=== PATIENT | female | born 1960 | race Caucasian/White ===

== ENCOUNTER 2024-11-03 09:12 | Outpatient (CLI) | payer MEDICARE, SELFPAY ==
--- OUTSIDE RECORDS SUMMARY | 2024-05-01 10:15 | XMS_ITS ---
Author Organization [facility] Address [address] [facility] [address] [place] [id number] Care Team Providers Care Factory Machine Computer Operator Name Role Phone Jamie Mata Primary Care [...] Normal Performing Lab: Notes/Report: Test performed by [facility] [place] [facility] [facility] , [address], [place] [address] Raj Harley MD, Dairy Frozen Manager CLIA: [id number] Sodium 140 135-145 mmol/L Potassium 4.5 3.5-5.3 [...] 4.3 Performing Lab: Notes/Report: Test performed by [facility], [address] , [address], [place] [address] Raj Harley MD, Dairy Frozen Manager CLIA: [id number] Cholesterol 329 <200 mg/dL Triglycerides 141 <150 [...] Normal Performing Lab: Notes/Report: Test performed by [facility] [address] [place] [address] , [address], [place] [address] Raj Harley MD, Dairy Frozen Manager CLIA: [id number] TSH reflex to FT4 0.55 0.43-5.25 mU/L P-Microalbumin/Creatinine, R andom Urine Sample Reviewed date:05/03/2024 09:05:11 PM Interpretation: Normal Performing Lab: Notes/Report: Test performed by [facility] [address] [place] [address] , [address], [place] [address] Raj Harley MD, Dairy Frozen Manager CLIA: [id number] Albumin/Creatinine Ratio, Urine <7.9 0-30 ug/m g Microalbumin, Urine, Random <0.3 Creatinine, Urine 37.9 REASON FOR VISIT to get established Medications [...] W/U Status Risk Notes Problem Essential hypertension (57582549) Essential hypertension (I10) Active confirmed Problem Pure hypercholesterolemia (250100551) Pure hypercholesterolemia (E78.00) Active confirmed Problem Morbid obesity (991006050) Morbid obesity (E66.01) Active confirmed Vital Signs Weight 258 lbs 05/01/2024 Blood pressure systolic 124 mm Hg 05/01/19 25 Blood pressure diastolic 82 mm Hg 025 Heart Rate 122 /min 05/01/2024 Height 67 in 05/01/2024 BMI 40.40 kg/m2 05/01/2024 Encounters Encounter Location Date Provider Diagnosis [facility] [address] [place], [place] [id number] 05/01/2024 Jamie Mata Essential hypertensi on I10 ; Pure hypercholesterolemia [...] improve Pending Test Test Name Order Date DEXA Hip and Spine 05/01/2024 Mammogram 05/01/2024 Next Appt Details Follow Up: 6 Months, Reason: Progress Notes * Agus SHAYB: 9 (64 yo F)Acc No.[id number]:05/01/2024 Progress Notes Patient: Karmen FRNAKLIN Provider: Bhavin Mata M.D. :1960 A ge:64 Y S ex:Female Date:05/01/2024 Address:[facility] [place] , [place], [id number] Subjective: * Chief Complaints: * 1 . To get established. * HPI: H PI: 64 year old female presents with c/o Patient is here today for?Pt here to establish care, pt was previously seen by Kourtney Brown NP in [place]. Pt moved to [place] in October 2023. 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 Assessment: * Assessment: 1. E ssential hypertension [...] glucose 134 74 - 106 mg/dL * Mary Sternira 05/01/2024 3:38:55 PM > Lashae Marie 05/03/2024 9:05:03 PM >See phone encounter ?LAB: Glycohemoglobin A1c (in house) (Collection Date & Time - 05/01/2024)? 5.7* Value Reference Range g lycohemoglobin 5.7% 5 - 6.5 % * Mary Sternira 05/01/2024 3:41:38 PM > Lashae Marie 05/03/2024 [...] 05/01/2024 4:05:4 1 PM > faxed to [facility] Scheduling 7.?Osteoporosis screening?Imaging: DEXA Hip and Spine* Jeimy Gomez 05/01/2024 4:05:5 4 PM > faxed to [facility] Scheduling * Immunizations: Prevnar (PCV20) : 0.5 mL (Route: Intramuscular) given by Deb Stern on Left Deltoid (Encounter for immunization) * Procedure Codes: 8 2950 GLUCOSE TEST, 80098 GLYCATED HEMOGLOBIN TEST, Modifiers: QW * Follow Up: 6 Months * Images: Billing Information: * Visit Code: 46605 Office Visit, New Pt., Level 4. * Procedure Codes: 23608 GLUCOSE TEST. 70593 GLYCATED HEMOGLOBIN TEST. Modifiers: QW * Electronic signature of Daily Mata MD on 11/03/2024 at 09:16 AM EDT Sign off status: Pending * Provider: Bhavin Mata M.D. Date: 0 05/01/2024 Generated for Derrell patino/Clay/Mayosmitting on: 0 11/03/2024 09:16 AM EDT History and Physical Notes * [...] previously seen by Kourtney Brown NP in [place]. 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
--- OUTSIDE RECORDS SUMMARY | 2024-10-28 05:00 | XMS_ITS ---
Author Organization [facility] Address [address] [facility] [address] [place] [id number] Care Team Providers Care Assistant Chief Train Dispatcher Name Role Phone Jamie Mata Primary Care Provider Allergies Allergen (clinical drug ingredient) Drug/Non Drug Allergy documented on EMR Reaction Allergy Type Onset Date Status prochlorperazine Prochlorperazine Unknown Drug Allergy Active Results Component Value Reference Range Notes Glucose (In-House) (Not yet reviewed by provider) Interpretation:93 Normal Performing Lab: Notes/Report: 93 Normal blood glucose 93 74 - 106 mg/dL Glycohemoglobin A1c (in hous e) (Not yet reviewed by provider) Interpretation:5.8 Normal Performing Lab: Notes/Report: 5.8 Normal glycohemoglobin 5.8% 5 - 6.5 % P-Comprehensive Metabolic Pa jessica (CMP) (Not yet reviewed by provider) Interpretation:Normal Performing Lab: Notes/Report: Test performed by [facility] [facility] , [address], [place] [address] Raj Harley MD, Tire Manager CLIA: [id number] Sodium 141 135-145 mmol/L Potassium 4.4 3.5-5.3 [...] mg/dL A/G Ratio 2.1 1.1-2.5 P-Lipid Panel (Not yet revie wed by provider) Interpretation:Normal Performing Lab: Notes/Report: Test performed by [facility] [address] , [address], [place] [address] Raj Harley MD, Tire Manager CLIA: [id number] Cholesterol 146 <200 mg/dL Triglycerides 83 <150 [...] fasting glucose) (R73.01) Active confirmed Vital Signs Weight 244.8 lbs 10/28/2024 Blood pressure systolic 120 mm Hg 10/29/19 25 Blood pressure diastolic 82 mm Hg 025 Heart Rate 96 /min 10/28/2024 Height 67 in 10/28/2024 BMI 38.34 kg/m2 10/28/2024 Encounters Encounter Location Date Provider Diagnosis [facility] [address] [place], [place] [id number] 10/28/2024 Jamie [place] Pure hypercholestero lemia E78.00 ; Essential hypertension [...] (ICD- 10 - E66.01) Plan Of Treatment Pending Test Test Name Order Date Glucose (In-House) 10/28/2024 Glycohemoglobin A1c (in house) P-Comprehensive Metabolic Panel (CMP) P-Lipid Panel 10/28/2024 Next Appt Details Follow Up: 6 Months, Reason: Progress Notes * Kim SHAYaDOB: [birth year] (64 yo F)Acc No.[id number]:10/28/2024 Progress Notes Patient: Karmen FRANKLIN Provider: Bhavin Mata M.D. :1960 A ge:64 Y S ex:Female Date:10/28/2024 Address:[facility] [address] , [place], [id number] Subjective: * Chief Complaints: * 1 . [...] > LM for pt to return call ?LAB: P-Lipid Panel (Collection Date & Time [...] T riglycerides 83 <150 - mg/dL * Deb Stern 10/29/2024 03:09:1 5 PM EDT > LM for pt to return call Deb Stern 11/02/2024 02:50:48 PM EDT > LM for pt to return call 2.?Essential hypertension?LAB: P-Comprehensive Metabolic Panel (CMP) (Collection [...] by Creatinine 94 >59 - mL/min/1.73m2 * [facility] 10/29/2024 03:09:1 5 PM EDT > LM for pt to return call [facility] 11/02/2024 02:50:48 PM EDT > LM for pt to return call 3.?IFG (impaired fasting glucose)?LAB: P-Comprehensive Metabolic Panel [...] by Creatinine 94 >59 - mL/min/1.73m2 * Jarred [facility] 10/29/2024 03:09:1 5 PM EDT > LM for pt to return call [facility] 11/02/2024 02:50:48 PM EDT > LM for pt to return call ?LAB: Glucose (In-House) (Collection Date & Time - 10/28/2024)?93 Normal* Value Reference Range b lood glucose 93 74 - 106 mg/dL * Deb Stern 10/28/2024 12:20:4 9 PM EDT > Deb Stern 10/29/2024 03:09:15 PM EDT > LM for pt to return call Deb Stern 11/02/2024 02:50:48 PM EDT > LM for pt to return call ?LAB: Glycohemoglobin A1c (in house) (Collection Date & Time - 10/28/2024)? 5.8 Normal* Value Reference Range g lycohemoglobin 5.8% 5 - 6.5 % * Deb Stern 10/28/2024 12:23:0 9 PM EDT > Deb Stern 10/29/2024 03:09:15 PM EDT > LM for pt to return call Deb Stern 11/02/2024 02:50:48 PM EDT > LM for pt to return call * Procedure Codes: G 2211 Complex e/[place], [address] GLUCOSE TEST, 82535 GLYCATED HEMOGLOBIN TEST, Modifiers: QW , 3044F HG A1C LEVEL LT 7.0%, 1036F TOBACCO NON-USER, G8950 PREHTN/HTN BP DOC INDCD F/U DOC, G8752 MOST RECENT SYSTOLIC BP < 140MM HG, G8754 MOST RECENT DIASTOLIC BP < 90MM HG * Follow Up: 6 Months * Images: Billing Information: * Visit Code: 75342 Office Visit, Est Pt., Level 4. * Procedure Codes: G2211 Complex e/[place]. [address] GLUCOSE TEST. 18482 GLYCATED HEMOGLOBIN TEST. Modifiers: QW 3044F HG A1C LEVEL LT 7.0%. 1036F TOBACCO NON-USER. G8950 PREHTN/HTN BP DOC INDCD F/U DOC. G8752 MOST RECENT SYSTOLIC BP < 140MM HG. G8754 MOST RECENT DIASTOLIC BP < 90MM HG. * Electronic signature of Daily Mata MD on 11/03/2024 at 09:16 AM EDT Sign off status: Pending * Provider: Bhavin Mata M.D. Date: 0 10/28/2024 Generated for Derrell patino/Clay/Krystin on: 11/03/2024 09:16 AM EDT History and Physical [...]
--- OUTSIDE RECORDS SUMMARY | 2024-11-03 09:16 | XMS_ITS | Patient Health Record ---
[facility] Organization [facility] Address [address] [facility] [address] [facility] [address] [place] [id number] Care Team Providers Care Java Xml Developer Name Role Phone Jamie Mata Primary Care Provider Allergies Allergen (clinical drug ingredient) Drug/Non Drug Allergy documented on EMR Reaction Allergy Type Onset Date Status prochlorperazine Prochlorperazine Unknown Drug Allergy Active Results Component Value Reference Range Notes Glycohemoglobin A1c (in hous e) (Not yet reviewed by provider) Interpretation:5.8 Normal Performing Lab: Notes/Report: 5.8 Normal glycohemoglobin 5.8% 5 - 6.5 % P-Lipid Panel (Not yet revie wed by provider) Interpretation:Normal Performing Lab: Notes/Report: Test performed by [facility] [address] [place] [address] , [address], [place] [address] aRj Harley MD, Fiscal Technician CLIA: [id number] Cholesterol 146 <200 mg/dL Triglycerides 83 <150 [...] Results: 72 Units: mg/dL % Change: -70% ANTONY Reviewed date:04/28/2024 01:14:43 PM Interpretation: Performing Lab: Notes/Report: P-Comprehensive Metabolic Pa jessica (CMP) (Not yet reviewed by provider) Interpretation:Normal Performing Lab: Notes/Report: Test performed by [facility] [facility] , [address], [place] [address] Raj Harley MD, Fiscal Technician CLIA: [id number] Sodium 141 135-145 mmol/L Potassium 4.4 3.5-5.3 [...] 0.3 <0.2-1.2 mg/dL A/G Ratio 2.1 1.1-2.5 Glucose (In-House) (Not yet reviewed by provider) Interpretation:93 Normal Performing Lab: Notes/Report: 93 Normal blood glucose 93 74 - 106 mg/dL P-Microalbumin/Creatinine, R andom Urine Sample Reviewed date:05/03/2024 09:05:11 PM Interpretation: Normal Performing Lab: Notes/Report: Test performed by [facility] [address] [place] [address] , [place] [address] Raj Harley MD, Fiscal Technician CLIA: [id number] Albumin/Creatinine Ratio, Urine <7.9 0-30 ug/m g Microalbumin, Urine, Random <0.3 Creatinine, Urine 37.9 P-TSH reflex to FT4 Reviewed date:05/03/2024 09:05:11 PM Interpretation: Normal Performing Lab: Notes/Report: Test performed by [facility] [address] [place] [address] , [place] [address] Raj Harley MD, Fiscal Technician CLIA: [id number] TSH reflex to FT4 0.55 0.43-5.25 mU/L P-Lipid Panel Reviewed date:05/03/2024 09:05:11 PM Interpretation:chol 329, chol/hdl 5.77, non-hdl 272, ldl 244, ldl/hdl 4.3 Performing Lab: Notes/Report: Test performed by [facility] [address] [place] [address] , [address], [place] [address] Raj Harley MD, Fiscal Technician CLIA: [id number] Cholesterol 329 <200 mg/dL Triglycerides 141 <150 [...] Results: 244 Units: mg/dL % Change: - P-Comprehensive Metabolic Pa jessica (CMP) Reviewed date:05/03/2024 09:05:11 PM Interpretation: Normal Performing Lab: Notes/Report: Test performed by [facility] [address] [place] [address] , [address], [place] [address] Raj Harley MD, Fiscal Technician CLIA: [id number] Sodium 140 135-145 mmol/L Potassium 4.5 3.5-5.3 [...] 0.3 <0.2-1.2 mg/dL A/G Ratio 1.7 1.1-2.5 Glycohemoglobin A1c (in hous e) Reviewed date:05/03/2024 09:05:11 PM Interpretation:5.7 Performing Lab: Notes/Report: 5.7 glycohemoglobin 5.7% 5 - 6.5 % Glucose (In-House) Reviewed date:05/03/2024 09:05:11 PM Interpretation:134 Performing Lab: Notes/Report: 134 blood glucose 134 74 - 106 mg/dL Reason For Referral No Information Medications Medication SIG (Take, Route, Frequency, Duration) Notes Start Date End Date Status Spironolactone 25 MG 1 tablet Orally Onc e a day; Duration: 90 days Active amLODIPine Besylate 10 MG 1 tablet Orall y Once a day; Duration: 90 days Active Rosuvastatin Calcium 20 MG 1 tablet Oral ly Once a day; Duration: 90 days Active Enalapril Maleate 20 MG 1 tablet Orally Once a day; Duration: 90 days Active Multivitamin - 1 tablet Orally Once a day; Duration: 30 day(s) Active Probiotic - as directed Orally Active Venlafaxine HCl 75 MG 1 tablet [...] W/U Status Risk Notes Problem Essential hypertension (31781334) Essential hypertension (I10) Active confirmed Problem Morbid obesity (960102065) Morbid obesity (E66.01) Active confirmed Problem Impaired fasting glycaemia (482590579) IFG (impaired fasting glucose) (R73.01) Active confirmed Problem Pure hypercholesterolemia (E78.00) Active confirmed Vital Signs Heart Rate 96 /min 10/28/2024 Blood pressure diastolic 82 mm Hg 10/28/2024 Height 67 in 10/28/2024 Blood pressure systolic 120 mm Hg 10/28/2024 Weight 244.8 lbs 10/28/2024 BMI 38.34 kg/m2 10/28/2024 Encounters Encounter Location Date Provider Diagnosis [facility] [address] [facility] [address] [place] [id number] 05/01/2024 Jamie Mata Essential hypertensi on I10 ; Pure hypercholesterolemia E78.00 ; IFG (impaired fasting glucose) R73.01 ; Depressive disorder F32.A ; Morbid obesity E66.01 ; Left wrist pain M25.532 ; Breast cancer screening by mammogram Z12.31 ; Osteoporosis screening Z13.820 and [facility]counter [facility] Z[facility] [address] [place] [phone] 10/28/2024 Jamieessence Mata Pure hypercholestero lemia E78.00 ; Essential hypertension I10 ; IFG (impaired fasting glucose) R73.01 ; Depressive disorder F32.A and Morbid obesity E66.01 [facility] [address] [place] [phone] 05/03/2024 Jamie Mata Assessments Encounter Date Diagnosis (ICD Code) Assessment Notes Treatment Notes Treatment Clinical Notes Section Notes 05/01/2024 Essential hypertensi on (ICD-10 - I10) 05/01/2024 Pure hypercholesterolemia (ICD-10 - E78.00) 10/28/2024 Essential hypertensi on (ICD-10 - I10) 10/28/2024 Pure hypercholesterolemia (ICD-10 - E78.00) 10/28/2024 IFG (impaired fastin g glucose) (ICD-10 - R73.01) 05/01/2024 IFG (impaired fastin g glucose) (ICD-10 - R73.01) 05/01/2024 Depressive disorder (ICD-10 - F32.A) 10/28/2024 Depressive disorder (ICD-10 - F32.A) 10/28/2024 Morbid obesity (ICD- 10 - E66.01) 05/01/2024 Morbid obesity (ICD- 10 - E66.01) 05/01/2024 Left wrist pain (ICD -10 - M25.532) Plan a trial of wearing a wrist cock up splint, call if symptoms do not improve 05/01/2024 Breast cancer screen ing by mammogram (ICD-10 - Z12.31) 05/01/2024 Osteoporosis screeni ng (ICD-10 - Z13.820) 05/01/2024 Encounter for immunization (ICD-10 - Z23) Plan Of Treatment Pending Test Test Name Order Date DEXA Hip and Spine 05/01/2024 Glucose (In-House) 10/28/2024 Glycohemoglobin A1c (in house) Mammogram 05/01/2024 P-Comprehensive Metabolic Panel (CMP) P-Lipid Panel 10/28/2024 Insurance Providers Payer Name Payer Address Payer Phone Subscriber Number Group Number Insured Name Patient Relationship to Insured Coverage Start Date Coverage End Date MEDICARE PART B [address] [address] [place] [id number] Karmen Blakely Self - patient is the insured Medical (General) History Medical History History ICD Code Hypertension Hyperlipidemia Allergic Rhinitis Depression Impaired fasting glucose Cologuard - Negative Surgical History Surgery Date(Month/Year) 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
--- OUTSIDE RECORDS SUMMARY | 2024-11-03 09:16 | XMS_ITS ---
Author Organization Unknown Medications Date Medication Dosage DosageUnit StartDate StopDate StopReason Active DoseQuantity DoseUnit Dispense DispenseUnit Refills NdcCode DrugCode PharmacyId IsPrescription MappedMedication Srcstatus 05/01 00:00 :00 amLODIPine Besylate 10 MG Tablet 1 90 1 0048 0716 810 P Unknown Status 05/01 00:00 :00 amLODIPine Besylate 10 MG Tablet 1 30 0048 0716 810 Taking 05/01 00:00 :00 Enalapril Maleate 20 MG Tablet 1 90 1 12489 044 501 P Unknown Status 05/01 00:00 :00 Enalapril Maleate 20 MG Tablet 1 30 66293 044 501 Taking 05/01 00:00 :00 metFORMIN HCl ER 500 MG Tablet Extended Release 24 Hour 1 90 1 [id number] 501 P Unknown Status 05/01 00:00 :00 metFORMIN HCl ER 500 MG Tablet Extended Release 24 Hour 1 30 [id number] 501 Taking 05/01 00:00 :00 Multivitami n - Tablet 1 30 4493412 6 411 Taking 05/01 00:00 :00 Probiotic - Tablet Delayed Release 1 [id number] 520 Taking 05/01 00:00 :00 Rosuvastati n Calcium 20 MG Tablet 1 90 1 136 15784 105 P Unknown Status 05/01 00:00 :00 Rosuvastati n Calcium 20 MG Tablet 1 30 136 86957 105 Taking 05/01 00:00 :00 Spironolact one 25 MG Tablet 1 90 Tablet 1 003 74114 601 P Unknown Status 05/01 00:00 :00 Spironolact one 25 MG Tablet 1 15 2022941 4 601 Taking 05/01 00:00 :00 Venlafaxine HCl 75 MG Tablet 1 90 1 2798265 5 701 P Unknown Status 05/01 00:00 :00 Venlafaxine HCl 75 MG Tablet 1 30 [id number] 5 701 Taking
--- NOTE | 2024-11-03 09:18 | XR_ITS ---
FINAL REPORT CLINICAL HISTORY: SCREENING COMPARISON: None FINDINGS: Using L1-4, the bone mineral density of the spine is 1.351 g/cm2, corresponding to T-score of 2.8, within normal limits. Using the left hip, the bone mineral density of the femoral neck is 0.913 g/cm2, corresponding to a T-score of 0.6, within normal limits. Using the right hip, the bone mineral density of the femoral neck is 0.839 g/cm2, corresponding to a T-score of -0.1, within normal limits. FRAX not reported because all T-scores at or above-1.0. NOTE: T-score: Standard deviation compared with peak bone mass of young adult mean. *Following the recommendations of the International Society of Bone densitometry, classification of hip BMD is based on the lower of two T-scores; total hip or femoral neck. IMPRESSION: Normal bone mineral density of the lumbar spine and hips. Reviewed, Interpreted and Dictated by Joshua Arreguin MD Transcribed by Nathalie Barnett Authenticated and [facility]
== END 2024-11-03 23:59 | disposition home or self-care (01) ==
LOC: RAD 09:14
PROVIDERS: PCP Family Medicine; Visit Provider Family Medicine
DX: M81.0 Age-related osteoporosis without current pathological fracture (principal)
CPT/HCPCS: 77080

== ENCOUNTER 2024-11-12 09:48 | Outpatient (CLI) | payer MEDICARE, SELFPAY ==
--- OUTSIDE RECORDS SUMMARY | 2024-05-01 10:15 | XMS_ITS ---
Author Organization [facility] Address [address] [facility] [address] [place] [id number] Care Team Providers Care Port Traffic Manager Name Role Phone Jamie Mata Primary Care Provider Allergies Allergen (clinical drug ingredient) Drug/Non Drug Allergy documented on EMR Reaction Allergy Type Onset Date Status prochlorperazine Prochlorperazine Unknown Drug Allergy Active Results Component Value Reference Range Notes Glucose (In-House) Reviewed date:05/03/2024 09:05:11 PM Interpretation:134 Performing Lab: Notes/Report: 134 blood glucose 134 74 - 106 mg/dL Glycohemoglobin A1c (in hous e) Reviewed date:05/03/2024 09:05:11 PM Interpretation:5.7 Performing Lab: Notes/Report: 5.7 glycohemoglobin 5.7% 5 - 6.5 % P-Comprehensive Metabolic Pa jessica (CMP) Reviewed date:05/03/2024 09:05:11 PM Interpretation: Normal Performing Lab: Notes/Report: Test performed by [facility] , [address], [place] [address] Raj Harley MD, Belt Conveyor Drier CLIA: [id number] Sodium 140 135-145 mmol/L Potassium 4.5 3.5-5.3 mmol/L Chloride 104 97-108 mmol/L CO2 25 22-32 mmol/L Glucose 96 65-99 mg/dL BUN 14 8-23 mg/dL Creatinine 0.89 0.50-1.00 mg/dL Calcium 10.4 8.6-10.4 mg/dL eGFR by Creatinine 72 >59 mL/min/1.73m2 Protein 7.2 6.0-8.3 g/dL Albumin 4.5 3.5-5.3 g/dL Alkaline Phosphatase 95 35-121 IU/L ALT (SGPT) 19 <5-47 IU/L AST (SGOT) 17 <5-40 IU/L Bilirubin, Total 0.3 <0.2-1.2 mg/dL A/G Ratio 1.7 1.1-2.5 P-Lipid Panel Reviewed date:05/03/2024 09:05:11 PM Interpretation:chol 329, chol/hdl 5.77, non-hdl 272, ldl 244, ldl/hdl 4.3 Performing Lab: Notes/Report: Test performed by [facility], [address] , [address], [place] [address] Raj Harley MD, Belt Conveyor Drier CLIA: [id number] Cholesterol 329 <200 mg/dL Triglycerides 141 <150 mg/dL HDL Cholesterol 57 >39 mg/dL Cholesterol / HDL Ratio 5.77 0.00-4.44 Ratio Non-HDL Cholesterol 272 <130 mg/dL LDL Cholesterol (Calculation) 244 <130 mg/dL LDL Cholesterol Levels* Less than 100 mg/dL Optimal 100 to 129 mg/dL Near Optimal/ Above Optimal 130 to 159 mg/dL Borderline High 160 to 189 mg/dL High 190 mg/dL and above Very High * Categories as recommended by the 2004 ATPIII guidelines LDL/HDL Ratio 4.3 <3.3 Ratio LDL Cholesterol Patient History Test Date: 05/01/2024 LDL Results: 244 Units: mg/dL % Change: - P-TSH reflex to FT4 Reviewed date:05/03/2024 09:05:11 PM Interpretation: Normal Performing Lab: Notes/Report: Test performed by [facility] [address] [place] [address] , [address], [place] [address] Raj Harley MD, Belt Conveyor Drier CLIA: [id number] TSH reflex to FT4 0.55 0.43-5.25 mU/L P-Microalbumin/Creatinine, R andom Urine Sample Reviewed date:05/03/2024 09:05:11 PM Interpretation: Normal Performing Lab: Notes/Report: Test performed by [facility] [address] [place] [address] , [address], [place] [address] Raj Harley MD, Belt Conveyor Drier CLIA: [id number] Albumin/Creatinine Ratio, Urine <7.9 0-30 ug/m g Microalbumin, Urine, Random <0.3 Creatinine, Urine 37.9 DEXA Hip and Spine Reviewed date:11/04/2024 04:51:55 PM Interpretation:Normal Performing Lab: Notes/Report: Normal Dexa results normal REASON FOR VISIT to get established Medications Medication SIG (Take, Route, Frequency, Duration) Notes Start Date End Date Status Spironolactone 25 MG 1 tablet Orally Onc e a day; Duration: 90 days Active Enalapril Maleate 20 MG 1 tablet Orally Once a day; Duration: 90 days Active Multivitamin - 1 tablet Orally Once a day; Duration: 30 day(s) Active amLODIPine Besylate 10 MG 1 tablet Orall y Once a day; Duration: 90 days Active metFORMIN HCl ER 500 MG 1 tablet with ev ening meal Orally Once a day; Duration: 90 days Active Probiotic - as directed Orally Active Rosuvastatin Calcium 20 MG 1 tablet Oral ly Once a day; Duration: 90 days Active Venlafaxine HCl 75 MG 1 tablet with food Orally Once a day; Duration: 90 days Active Immunizations Vaccine Route Administration Date Status Comme nts Prevnar (PCV20) IM Intramuscular 05/01/2024 Administered Problems Problem Type SNOMED Code ICD Code Onset Dates Problem Status W/U Status Risk Notes Problem Essential hypertension (04944057) Essential hypertension (I10) Active confirmed Problem Pure hypercholesterolemia (797204942) Pure hypercholesterolemia (E78.00) Active confirmed Problem Morbid obesity (059694376) Morbid obesity (E66.01) Active confirmed Vital Signs Blood pressure systolic 124 mm Hg 05/01/19 25 Blood pressure diastolic 82 mm Hg 025 Heart Rate 122 /min 05/01/2024 Height 67 in 05/01/2024 Weight 258 lbs 05/01/2024 BMI 40.40 kg/m2 05/01/2024 Encounters Encounter Location Date Provider Diagnosis [facility] [address] [facility] [address] [place], [place] [id number] 05/01/2024 Jamie Esperanza Essential hypertensi on I10 ; Pure hypercholesterolemia E78.00 ; IFG (impaired fasting glucose) R73.01 ; Depressive disorder F32.A ; Morbid obesity E66.01 ; Left wrist pain M25.532 ; Breast cancer screening by mammogram Z12.31 ; Osteoporosis screening Z13.820 and Encounter for immunization Z23 Assessments Encounter Date Diagnosis (ICD Code) Assessment Notes Treatment Notes Treatment Clinical Notes Section Notes 05/01/2024 Essential hypertensi on (ICD-10 - I10) 05/01/2024 Pure hypercholesterolemia (ICD-10 - E78.00) 05/01/2024 IFG (impaired fastin g glucose) (ICD-10 - R73.01) 05/01/2024 Depressive disorder (ICD-10 - F32.A) 05/01/2024 Morbid obesity (ICD- 10 - E66.01) 05/01/2024 Left wrist pain (ICD -10 - M25.532) Plan a trial of wearing a wrist cock up splint, call if symptoms do not improve 05/01/2024 Breast cancer screen ing by mammogram (ICD-10 - Z12.31) 05/01/2024 Osteoporosis screeni ng (ICD-10 - Z13.820) 05/01/2024 Encounter for immunization (ICD-10 - Z23) Plan Of Treatment Medication Medication Name Sig Start Date Stop Date Notes Spironolactone 25 MG 1 tablet Orally Onc e a day; Duration: 90 days Enalapril Maleate 20 MG 1 tablet Orally Once a day; Duration: 90 days amLODIPine Besylate 10 MG 1 tablet Orall y Once a day; Duration: 90 days metFORMIN HCl ER 500 MG 1 tablet with ev ening meal Orally Once a day; Duration: 90 days Rosuvastatin Calcium 20 MG 1 tablet Oral ly Once a day; Duration: 90 days Venlafaxine HCl 75 MG 1 tablet with food Orally Once a day; Duration: 90 days Treatment Notes Assessment Notes Left wrist pain Plan a trial of wear ing a wrist cock up splint, call if symptoms do not improve Pending Test Test Name Order Date Mammogram 05/01/2024 Next Appt Details Follow Up: 6 Months, Reason: Progress Notes * Agus SHAYB: 9 (64 yo F)Acc No.[id number]:05/01/2024 Progress Notes Patient: Karmen FRANKLIN Provider: Bhavin Mata M.D. :1960 A ge:64 Y S ex:Female Date:05/01/2024 Address:[address] [place] [address], [id number] Subjective: * Chief Complaints: * 1 . To get established. * HPI: H PI: 64 year old female presents with c/o Patient is here today for?Pt here to establish care, pt was previously seen by Kourtney Brown NP in [place]. Pt moved to [place] in October 2023. C ardiology: c/o Blood Pressure Elevated P t states she is doing well and does need rf on medication. E lbow/Arm: c/o radiation of pain P t complains of lt elbow pain that radiates to her wrist. Pt states the pain does improve if she is not using her lt arm but once she starts doing stuff the pain returns. * ROS: D ERMATOLOGY: no R marco. n o H jorge. G ASTROENTEROLOGY: no N ausea. n o V omiting. U ROLOGY: no D ifficulty urinating. n o B lood in urine. * Medical History: H ypertension, Hyperlipidemia, Allergic Rhinitis, Depression, Impaired fasting glucose. * Surgical History: P arathyroid Removal 01/2023, Carpal Tunnel Release 07/2023. * Hospitalization/Major Diagno stic Procedure: D enies Past Hospitalization. * Family History: F ather: diagnosed with Hypertension, Heart Disease, Stroke, Cancer. M other: diagnosed with Cancer. 1 sister(s) . 3 son(s) , 1 daughter(s) . . * Social History: C URRENT TOBACCO USE: No . C affeine: yes, frequency: Coffee, Tea daily. Alcohol: yes, Beer, 1 per week. * Medications: T aking Multivitamin - Tablet 1 tablet Orally Once a day , Taking Probiotic - Tablet Delayed Release as directed Orally , Taking Rosuvastatin Calcium 20 MG Tablet 1 tablet Orally Once a day , Taking Venlafaxine HCl 75 MG Tablet 1 tablet with food Orally Once a day , Taking Spironolactone 25 MG Tablet 1 tablet Orally , Taking Enalapril Maleate 20 MG Tablet 1 tablet Orally Once a day , Taking metFORMIN HCl ER 500 MG Tablet Extended Release 24 Hour 1 tablet with evening meal Orally Once a day , Taking amLODIPine Besylate 10 MG Tablet 1 tablet Orally Once a day , Medication List reviewed and reconciled with the patient * Allergies: P rochlorperazine. Objective: * Vitals: W t:258, Temp:98.1, BP:124/82, HR:122, Nurse:evan, Ht:67, BMI:40.40. * Examination: G eneral Examination: General Appearance: N AD. H EENT: u nremarkable.?Neck: s upple, no lymphadenopathy. H eart: R SR. L ungs: c lear to auscultation. S kin: n ormal, no rash. P eripheral pulses: n ormal (2+) bilaterally. E xtremities: f ull ROM at left wrist, no bony tenderness, normal physician specialist. Assessment: * Assessment: 1. E ssential hypertension - I10 (Primary) 2 . P ure hypercholesterolemia - E78.00 3 . I FG (impaired fasting glucose) - R73.01 4 . D epressive disorder - F32.A 5 . M orbid obesity - E66.01 6 . L eft wrist pain - M25.532 7 . B reast cancer screening by mammogram - Z12.31? 8. O steoporosis screening - Z13.820 9 . E ncounter for immunization - Z23 Plan: * Treatment: Value Reference Range A /G Ratio 1.7 1.1-2.5 - * A lbumin 4.5 3.5-5.3 - g/dL * A lkaline Phosphatase 95 35-121 - IU/L * A LT (SGPT) 19 <5-47 - IU/L * A ST (SGOT) 17 <5-40 - IU/L * B ilirubin, Total 0.3 <0.2-1.2 - mg/dL * B UN 14 8-23 - mg/dL * C alcium 10.4 8.6-10.4 - mg/dL * C hloride 104 97-108 - mmol/L * C O2 25 22-32 - mmol/L * C reatinine 0.89 0.50-1.00 - mg/dL * G lucose 96 65-99 - mg/dL * P otassium 4.5 3.5-5.3 - mmol/L * S odium 140 135-145 - mmol/L * P rotein 7.2 6.0-8.3 - g/dL * e GFR by Creatinine 72 >59 - mL/min/1.73m2 * Lashae Marie 05/03/2024 9:05:0 3 PM >See phone encounter ?LAB: P-Microalbumin/Creatinine, Random Urine Sample (Collection Date & Time - 05/01/2024 02:17 PM)?Normal* Value Reference Range A lbumin/Creatinine Ratio, Urine <7.9 0-30 - ug /mg * C reatinine, Urine 37.9 - mg/dL * M icroalbumin, Urine, Random <0.3 - mg/dL * Lashae Marie 05/03/2024 9:05:0 3 PM >See phone encounter 2.?Pure hypercholesterolemia? Refill Rosuvastatin Calcium Tablet, 20 MG, 1 tablet, Orally, Once a day, 90 days, 90, Refills 1. ?LAB: P-Comprehensive Metabolic Panel (CMP) (Collection Date & Time - 05/01/2024 02:17 PM)?Normal* Value Reference Range A /G Ratio 1.7 1.1-2.5 - * A lbumin 4.5 3.5-5.3 - g/dL * A lkaline Phosphatase 95 35-121 - IU/L * A LT (SGPT) 19 <5-47 - IU/L * A ST (SGOT) 17 <5-40 - IU/L * B ilirubin, Total 0.3 <0.2-1.2 - mg/dL * B UN 14 8-23 - mg/dL * C alcium 10.4 8.6-10.4 - mg/dL * C hloride 104 97-108 - mmol/L * C O2 25 22-32 - mmol/L * C reatinine 0.89 0.50-1.00 - mg/dL * G lucose 96 65-99 - mg/dL * P otassium 4.5 3.5-5.3 - mmol/L * S odium 140 135-145 - mmol/L * P rotein 7.2 6.0-8.3 - g/dL * e GFR by Creatinine 72 >59 - mL/min/1.73m2 * Lashae Marie 05/03/2024 9:05:0 3 PM >See phone encounter ?LAB: P-Lipid Panel (Collection Date & Time - 05/01/2024 02:17 PM)?chol 329, chol/hdl 5.77, non-hdl 272, ldl 244, ldl/hdl 4.3* Value Reference Range C holesterol / HDL Ratio 5.77 H 0.00-4.44 - Ratio * C holesterol 329 H <200 - mg/dL * H DL Cholesterol 57 >39 - mg/dL * L DL Cholesterol (Calculation) 244 H <130 - mg/d L * L DL/HDL Ratio 4.3 H <3.3 - Ratio * N on-HDL Cholesterol 272 H <130 - mg/dL * T riglycerides 141 <150 - mg/dL * Lashae Marie 05/03/2024 9:05:0 3 PM >See phone encounter ?LAB: P-TSH reflex to FT4 (Collection Date & Time - 05/01/2024 02:17 PM)? Normal* Value Reference Range T SH reflex to FT4 0.55 0.43-5.25 - mU/L * Lashae Marie 05/03/2024 9:05:0 3 PM >See phone encounter 3.?IFG (impaired fasting glucose)? Refill metFORMIN HCl ER Tablet Extended Release 24 Hour, 500 MG, 1 tablet with evening meal, Orally, Once a day, 90 days, 90, Refills 1.?LAB: Glucose (In-House) (Collection Date & Time - 05/01/2024)?134* Value Reference Range b lood glucose 134 74 - 106 mg/dL * Deb Stern 05/01/2024 3:38:55 PM > Lashae Marie 05/03/2024 9:05:03 PM >See phone encounter ?LAB: Glycohemoglobin A1c (in house) (Collection Date & Time - 05/01/2024)? 5.7* Value Reference Range g lycohemoglobin 5.7% 5 - 6.5 % * Deb Stern 05/01/2024 3:41:38 PM > Lashae Marie 05/03/2024 9:05:03 PM >See phone encounter 4.?Depressive disorder? Refill Venlafaxine HCl Tablet, 75 MG, 1 tablet with food, Orally, Once a day, 90 days, 90, Refills 1.??5.?Left wrist pain? Notes: Plan a trial of wearing a wrist cock up splint, call if symptoms do not improve??6.?Breast cancer screening by mammogram?Imaging: Mammogram* Jeimy Gomez 05/01/2024 4:05:4 1 PM > faxed to [facility] Scheduling 7.?Osteoporosis screening?Imaging: DEXA Hip and Spine (Performed Date - 11/03/2024)?Normal* Value Reference Range D exa results normal * Jeimy Gomez 05/01/2024 4:05:5 4 PM > [facility] to [facility] SchedulingDeb Stern 11/04/2024 04:51:51 PM EDT > Pt informed * Immunizations: Prevnar (PCV20) : 0.5 mL (Route: Intramuscular) given by Deb Stern on Left Deltoid (Encounter for immunization) * Procedure Codes: 8 2950 GLUCOSE TEST, 44432 GLYCATED HEMOGLOBIN TEST, Modifiers: QW * Follow Up: 6 Months * Images: Billing Information: * Visit Code: 38515 Office Visit, New Pt., Level 4. * Procedure Codes: 95136 GLUCOSE TEST. 47539 GLYCATED HEMOGLOBIN TEST. Modifiers: QW * Electronic signature of Daily Mata MD on 11/12/2024 at 09:51 AM EDT Sign off status: Pending * Provider: Bhavin Mata M.D. Date: 0 05/01/2024 Generated for Derrell patino/Clay/eTransmitting on: 0 11/12/2024 09:51 AM EDT History and Physical Notes * HPI (History of Present Illness) Category Sub-Category Detail Notes Category Not es Cardiology Blood Pressure Elevated Pt state s she is doing well and does need rf on medication Elbow/Arm radiation of pain Pt complains o f lt elbow pain that radiates to her wrist. Pt states the pain does improve if she is not using her lt arm but once she starts doing stuff the pain returns HPI Patient is here today for Pt her e to establish care, pt was previously seen by Kourtney Brown NP in [place]. Pt moved to [place] in October 2023 Examination Category Sub-Category Detail Notes Category Not es General Examination HEENT: unremarkable Heart: RSR Lungs: clear to auscultatio n Extremities: full ROM at left wri st, no bony tenderness, normal physician specialist General Appearance: NAD Skin: normal, no rash Neck: supple, no lymphaden opathy Peripheral pulses: normal (2+) bilatera lly
--- OUTSIDE RECORDS SUMMARY | 2024-10-28 05:00 | XMS_ITS ---
Author Organization [facility] Address [address] [facility] [address] [facility] [address] [place] [id number] Care Team Providers Care Marketing And Public Relations Manager Name Role Phone Jamie Mata Primary Care Provider Allergies Allergen (clinical drug ingredient) Drug/Non Drug Allergy documented on EMR Reaction Allergy Type Onset Date Status prochlorperazine Prochlorperazine Unknown Drug Allergy Active Results Component Value Reference Range Notes Glucose (In-House) Reviewed date:11/03/2024 11:55:47 AM Interpretation:93 Normal Performing Lab: Notes/Report: 93 Normal blood glucose 93 74 - 106 mg/dL Glycohemoglobin A1c (in hous e) Reviewed date:11/03/2024 11:55:47 AM Interpretation:5.8 Normal Performing Lab: Notes/Report: 5.8 Normal glycohemoglobin 5.8% 5 - 6.5 % P-Comprehensive Metabolic Pa jessica (CMP) Reviewed date:11/03/2024 11:55:47 AM Interpretation:Normal Performing Lab: Notes/Report: Test performed by [facility] [address] [place] [address] , [address], [place] [address] Raj Harley MD, Employment Coach CLIA: [id number] Sodium 141 135-145 mmol/L Potassium 4.4 3.5-5.3 mmol/L Chloride 105 97-108 mmol/L CO2 25 20-32 mmol/L Glucose 89 65-99 mg/dL BUN 15 8-23 mg/dL Creatinine 0.71 0.50-1.00 mg/dL Calcium 9.6 8.6-10.4 mg/dL eGFR by Creatinine 94 >59 mL/min/1.73m2 Protein 6.6 6.0-8.3 g/dL Albumin 4.5 3.5-5.3 g/dL Alkaline Phosphatase 79 35-121 IU/L ALT (SGPT) 18 <5-47 IU/L AST (SGOT) 17 <5-40 IU/L Bilirubin, Total 0.3 <0.2-1.2 mg/dL A/G Ratio 2.1 1.1-2.5 P-Lipid Panel Reviewed date:11/03/2024 11:55:47 AM Interpretation:Normal Performing Lab: Notes/Report: Test performed by [facility], [address] , [place] [address] Raj Harley MD, Employment Coach CLIA: [id number] Cholesterol 146 <200 mg/dL Triglycerides 83 <150 mg/dL HDL Cholesterol 57 >39 mg/dL Cholesterol / HDL Ratio 2.56 0.00-4.44 Ratio Non-HDL Cholesterol 89 <130 mg/dL LDL Cholesterol (Calculation) 72 <130 mg/dL LDL Cholesterol Levels* Less than 100 mg/dL Optimal 100 to 129 mg/dL Near Optimal/ Above Optimal 130 to 159 mg/dL Borderline High 160 to 189 mg/dL High 190 mg/dL and above Very High * Categories as recommended by the 2004 ATPIII guidelines LDL/HDL Ratio 1.3 <3.3 Ratio LDL Cholesterol Patient History Test Date: 05/01/2024 LDL Results: 244 Units: mg/dL % Change: - Test Date: 10/28/2024 LDL Results: 72 Units: mg/dL % Change: -70% REASON FOR VISIT 6 month checkup Medications Medication SIG (Take, Route, Frequency, Duration) Notes Start Date End Date Status Spironolactone 25 MG 1 tablet Orally Onc e a day; Duration: 90 days Active Rosuvastatin Calcium 20 MG 1 tablet Oral ly Once a day; Duration: 90 days Active Enalapril Maleate 20 MG 1 tablet Orally Once a day; Duration: 90 days Active Venlafaxine HCl 75 MG 1 tablet with food Orally Once a day; Duration: 90 days Active metFORMIN HCl ER 500 MG 1 tablet with ev ening meal Orally Once a day; Duration: 90 days Active amLODIPine Besylate 10 MG 1 tablet Orall y Once a day; Duration: 90 days Active Multivitamin - 1 tablet Orally Once a day; Duration: 30 day(s) Active Probiotic - as directed Orally Active Problems Problem Type SNOMED Code ICD Code Onset Dates Problem Status W/U Status Risk Notes Problem IFG (impaired fasting glucose) (R73.01) Active confirmed Vital Signs Blood pressure systolic 120 mm Hg 10/29/19 25 Blood pressure diastolic 82 mm Hg 025 Heart Rate 96 /min 10/28/2024 Height 67 in 10/28/2024 Weight 244.8 lbs 10/28/2024 BMI 38.34 kg/m2 10/28/2024 Encounters Encounter Location Date Provider Diagnosis [facility] [address] [place], [place] [id number] 10/28/2024 Jamie [place] Pure hypercholestero lemia E78.00 ; Essential hypertension I10 ; IFG (impaired fasting glucose) R73.01 ; Depressive disorder F32.A and Morbid obesity E66.01 Assessments Encounter Date Diagnosis (ICD Code) Assessment Notes Treatment Notes Treatment Clinical Notes Section Notes 10/28/2024 Pure hypercholesterolemia (ICD-10 - E78.00) 10/28/2024 Essential hypertensi on (ICD-10 - I10) 10/28/2024 IFG (impaired fastin g glucose) (ICD-10 - R73.01) 10/28/2024 Depressive disorder (ICD-10 - F32.A) 10/28/2024 Morbid obesity (ICD- 10 - E66.01) Plan Of Treatment Next Appt Details Follow Up: 6 Months, Reason: Progress Notes * Agus SHAYB: 9 (64 yo F)Acc No.[id number]:10/28/2024 Progress Notes Patient: Karmen FRANKLIN Provider: Bhavin Mata M.D. :1960 A ge:64 Y S ex:Female Date:10/28/2024 Address[facility] [place] [facility] [place] [id number] Subjective: * Chief Complaints: * 1 . 6 month checkup. * HPI: C ardiology: 64 year old female presents with c/o Blood Pressure Elevated?Pt here for 6 mo f/u on hypertension. Pt states she is doing well and does not have any concerns.? c/o Hyperlipidemia P t is fasting today. * ROS: D ERMATOLOGY: no R marco. n o H jorge. G ASTROENTEROLOGY: no N ausea. n o V omiting. U ROLOGY: no D ifficulty urinating. n o B lood in urine. * Medical History: H ypertension, Hyperlipidemia, Allergic Rhinitis, Depression, Impaired fasting glucose, Cologuard - Negative. * Surgical History: P arathyroid Removal 01/2023, Carpal Tunnel Release 07/2023. * Hospitalization/Major Diagno stic Procedure: D enies Past Hospitalization. * Family History: F ather: diagnosed with Cancer, Hypertension, Stroke, Heart Disease. M other: diagnosed with Cancer. 1 sister(s) . 3 son(s) , 1 daughter(s) . . * Social History: C URRENT TOBACCO USE: No . C affeine: yes, frequency: Coffee, Tea daily. Alcohol: yes, Beer, 1 per week. * Medications: T aking Multivitamin - Tablet 1 tablet Orally Once a day , Taking Probiotic - Tablet Delayed Release as directed Orally , Taking Venlafaxine HCl 75 MG Tablet 1 tablet with food Orally Once a day , Taking metFORMIN HCl ER 500 MG Tablet Extended Release 24 Hour 1 tablet with evening meal Orally Once a day , Taking Rosuvastatin Calcium 20 MG Tablet 1 tablet Orally Once a day , Taking Enalapril Maleate 20 MG Tablet 1 tablet Orally Once a day , Taking Spironolactone 25 MG Tablet 1 tablet Orally Once a day , Taking amLODIPine Besylate 10 MG Tablet 1 tablet Orally Once a day , Medication List reviewed and reconciled with the patient * Allergies: P rochlorperazine. Objective: * Vitals: W t: 244.8, Temp: 97.8, BP: 120/82, HR: 96, Nurse: evan, Ht: 67, BMI:38.34. * Examination: G eneral Examination: General Appearance: N AD. H eart: R SR. L ungs:?clear to auscultation. S kin: n ormal, no rash. P eripheral pulses: n ormal (2+) bilaterally. Assessment: * Assessment: 1. P ure hypercholesterolemia - E78.00 (Primary) 2 . E ssential hypertension - I10 3 . I FG (impaired fasting glucose) - R73.01 4 . D epressive disorder - F32.A 5 . M orbid obesity - E66.01 Plan: * Treatment: Value Reference Range A /G Ratio 2.1 1.1-2.5 - * A lbumin 4.5 3.5-5.3 - g/dL * A lkaline Phosphatase 79 35-121 - IU/L * A LT (SGPT) 18 <5-47 - IU/L * A ST (SGOT) 17 <5-40 - IU/L * B ilirubin, Total 0.3 <0.2-1.2 - mg/dL * B UN 15 8-23 - mg/dL * C alcium 9.6 8.6-10.4 - mg/dL * C hloride 105 97-108 - mmol/L * C O2 25 20-32 - mmol/L * C reatinine 0.71 0.50-1.00 - mg/dL * G lucose 89 65-99 - mg/dL * P otassium 4.4 3.5-5.3 - mmol/L * S odium 141 135-145 - mmol/L * P rotein 6.6 6.0-8.3 - g/dL * e GFR by Creatinine 94 >59 - mL/min/1.73m2 * [facility] 10/29/2024 03:09:1 5 PM EDT > LM for pt to return call [facility] 11/02/2024 02:50:48 PM EDT > LM for pt to return call [facility] 11/03/2024 11:55:33 AM EDT > Pt informed ?LAB: P-Lipid Panel (Collection Date & Time - 10/28/2024 08:27 AM)?Normal* Value Reference Range C holesterol / HDL Ratio 2.56 0.00-4.44 - Ratio * C holesterol 146 <200 - mg/dL * H DL Cholesterol 57 >39 - mg/dL * L DL Cholesterol (Calculation) 72 <130 - mg/d L * L DL/HDL Ratio 1.3 <3.3 - Ratio * N on-HDL Cholesterol 89 <130 - mg/dL * T riglycerides 83 <150 - mg/dL * [facility] 10/29/2024 03:09:1 5 PM EDT > LM for pt to return call [facility] 11/02/2024 02:50:48 PM EDT > LM for pt to return call [facility] 11/03/2024 11:55:33 AM EDT > Pt informed 2.?Essential hypertension?LAB: P-Comprehensive Metabolic Panel (CMP) (Collection Date & Time - 10/28/2024 08:27 AM)?Normal* Value Reference Range A /G Ratio 2.1 1.1-2.5 - * A lbumin 4.5 3.5-5.3 - g/dL * A lkaline Phosphatase 79 35-121 - IU/L * A LT (SGPT) 18 <5-47 - IU/L * A ST (SGOT) 17 <5-40 - IU/L * B ilirubin, Total 0.3 <0.2-1.2 - mg/dL * B UN 15 8-23 - mg/dL * C alcium 9.6 8.6-10.4 - mg/dL * C hloride 105 97-108 - mmol/L * C O2 25 20-32 - mmol/L * C reatinine 0.71 0.50-1.00 - mg/dL * G lucose 89 65-99 - mg/dL * P otassium 4.4 3.5-5.3 - mmol/L * S odium 141 135-145 - mmol/L * P rotein 6.6 6.0-8.3 - g/dL * e GFR by Creatinine 94 >59 - mL/min/1.73m2 * Mary [facility]ira 10/29/2024 03:09:1 5 PM EDT > LM for pt to return call Mary [facility] 11/02/2024 02:50:48 PM EDT > LM for pt to return call [facility] 11/03/2024 11:55:33 AM EDT > Pt informed 3.?IFG (impaired fasting glucose)?LAB: P-Comprehensive Metabolic Panel (CMP) (Collection Date & Time - 10/28/2024 08:27 AM)?Normal* Value Reference Range A /G Ratio 2.1 1.1-2.5 - * A lbumin 4.5 3.5-5.3 - g/dL * A lkaline Phosphatase 79 35-121 - IU/L * A LT (SGPT) 18 <5-47 - IU/L * A ST (SGOT) 17 <5-40 - IU/L * B ilirubin, Total 0.3 <0.2-1.2 - mg/dL * B UN 15 8-23 - mg/dL * C alcium 9.6 8.6-10.4 - mg/dL * C hloride 105 97-108 - mmol/L * C O2 25 20-32 - mmol/L * C reatinine 0.71 0.50-1.00 - mg/dL * G lucose 89 65-99 - mg/dL * P otassium 4.4 3.5-5.3 - mmol/L * S odium 141 135-145 - mmol/L * P rotein 6.6 6.0-8.3 - g/dL * e GFR by Creatinine 94 >59 - mL/min/1.73m2 * Deb Stern 10/29/2024 03:09:1 5 PM EDT > LM for pt to return call Mary Sternira 11/02/2024 02:50:48 PM EDT > LM for pt to return call Mary Sternira 11/03/2024 11:55:33 AM EDT > Pt informed ?LAB: Glucose (In-House) (Collection Date & Time - 10/28/2024)?93 Normal* Value Reference Range b lood glucose 93 74 - 106 mg/dL * Deb Stern 10/28/2024 12:20:4 9 PM EDT > Mary Sternira 10/29/2024 03:09:15 PM EDT > LM for pt to return call Mary Sternira 11/02/2024 02:50:48 PM EDT > LM for pt to return call Mary Sternira 11/03/2024 11:55:33 AM EDT > Pt informed ?LAB: Glycohemoglobin A1c (in house) (Collection Date & Time - 10/28/2024)? 5.8 Normal* Value Reference Range g lycohemoglobin 5.8% 5 - 6.5 % * Deb Stern 10/28/2024 12:23:0 9 PM EDT > Mary Sternira 10/29/2024 03:09:15 PM EDT > LM for pt to return call Mary Sternira 11/02/2024 02:50:48 PM EDT > LM for pt to return call Deb Stern 11/03/2024 11:55:33 AM EDT > Pt informed * Procedure Codes: G 2211 Complex e/[place], [address] GLUCOSE TEST, 35589 GLYCATED HEMOGLOBIN TEST, Modifiers: QW , 3044F HG A1C LEVEL LT 7.0%, 1036F TOBACCO NON-USER, G8950 PREHTN/HTN BP DOC INDCD F/U DOC, G8752 MOST RECENT SYSTOLIC BP < 140MM HG, G8754 MOST RECENT DIASTOLIC BP < 90MM HG * Follow Up: 6 Months * Images: Billing Information: * Visit Code: 90906 Office Visit, Est Pt., Level 4. * Procedure Codes: G2211 Complex e/[place]. [address] GLUCOSE TEST. 80490 GLYCATED HEMOGLOBIN TEST. Modifiers: QW 3044F HG A1C LEVEL LT 7.0%. 1036F TOBACCO NON-USER. G8950 PREHTN/HTN BP DOC INDCD F/U DOC. G8752 MOST RECENT SYSTOLIC BP < 140MM HG. G8754 MOST RECENT DIASTOLIC BP < 90MM HG. * Electronic signature of Daily Mata MD on 11/12/2024 at 09:51 AM EDT Sign off status: Pending * Provider: Bhavin Mata M.D. Date: 10/28/2024 Generated for Derrell patino/Clay/Mayosmitting on: 0 11/12/2024 09:51 AM EDT History and Physical Notes * HPI (History of Present Illness) Category Sub-Category Detail Notes Category Not es Cardiology Blood Pressure Elevated Pt here for 6 mo f/u on hypertension. Pt states she is doing well and does not have any concerns Hyperlipidemia Pt is fasting today Examination Category Sub-Category Detail Notes Category Not es General Examination Heart: RSR Lungs: clear to auscultatio n General Appearance: NAD Skin: normal, no rash Peripheral pulses: normal (2+) bilatera lly
--- NOTE | 2024-11-12 09:51 | MM_ITS ---
PROCEDURE INFORMATION: Exam: MG Bilateral Screening 3D Mammography Exam date and time: 11/12/2024 9:51 AM Age: 64 years old Clinical indication: Screening examination TECHNIQUE: Imaging protocol: Bilateral Screening tomosynthesis and 2D mammography including computer-aided detection (CAD) when performed. COMPARISON: 1. MG [facility] DIGITAL SCREENING BILATERAL 04/26/2023 3:57 PM 2. MG [place] DIGITAL SCREENING BILATERAL 11/09/2021 8:26 AM FINDINGS: MAMMOGRAPHY: Breast composition: There are scattered areas of fibroglandular density. Mass: None. Architectural distortion: None. Calcifications: No suspicious calcifications. Asymmetric density: None. Skin thickening: None. Axillary adenopathy: None. IMPRESSION: No mammographic evidence of malignancy. Annual screening is recommended unless otherwise clinically indicated. ASSESSMENT: BI-RADS Category 1: Negative.
--- OUTSIDE RECORDS SUMMARY | 2024-11-12 09:52 | XMS_ITS | Patient Health Record ---
Author Organization [facility] Address [address] [facility] [address] [place] [phone] Care Team Providers Care Cleaner And Presser Name Role Phone Jamie Mata Primary Care Provider [phone] Allergies Allergen (clinical drug ingredient) Drug/Non Drug [...] Normal Performing Lab: Notes/Report: Test performed by [facility] [address] [place] [address] , [address], [place] [address] Raj Harley MD, Acute Care Certified Nursing Assistant CLIA: [id number] Sodium 140 135-145 mmol/L Potassium 4.5 3.5-5.3 [...] 4.3 Performing Lab: Notes/Report: Test performed by [facility], [address] , [address], [place] [address] Raj Harley MD, Acute Care Certified Nursing Assistant CLIA: [id number] Cholesterol 329 <200 mg/dL Triglycerides 141 <150 [...] Normal Performing Lab: Notes/Report: Test performed by [facility] [address] [place] [address] , [address], [place] [address] Raj Harley MD, Acute Care Certified Nursing Assistant CLIA: [id number] TSH reflex to FT4 0.55 0.43-5.25 mU/L P-Microalbumin/Creatinine, R andom Urine Sample Reviewed date:05/03/2024 09:05:11 PM Interpretation: Normal Performing Lab: Notes/Report: Test performed by [facility] [address] [place] [address] , [address], [place] [address] Raj Harley MD, Acute Care Certified Nursing Assistant CLIA: [id number] Albumin/Creatinine Ratio, Urine <7.9 0-30 ug/m g Microalbumin, Urine, Random <0.3 Creatinine, Urine 37.9 DEXA Hip and Spine Reviewed date:11/04/2024 04:51:55 PM Interpretation:Normal Performing Lab: Notes/Report: Normal Dexa results normal ANTONY Reviewed date:04/28/2024 01:14:43 PM Interpretation: Performing Lab: Notes/Report: P-Lipid Panel Reviewed date:11/03/2024 11:55:47 AM Interpretation:Normal Performing Lab: Notes/Report: Test performed by [facility] [address] [place] [address] , [address], [place] [address] Raj Harley MD, Acute Care Certified Nursing Assistant CLIA: [id number] Cholesterol 146 <200 mg/dL Triglycerides 83 <150 [...] Results: 72 Units: mg/dL % Change: -70% P-Comprehensive Metabolic Pa jessica (CMP) Reviewed date:11/03/2024 11:55:47 AM Interpretation:Normal Performing Lab: Notes/Report: Test performed by [facility] [address] [facility] , [address], [place] [address] Raj Harley MD, Acute Care Certified Nursing Assistant CLIA: [id number] Sodium 141 135-145 mmol/L Potassium 4.4 3.5-5.3 [...] 0.3 <0.2-1.2 mg/dL A/G Ratio 2.1 1.1-2.5 Glycohemoglobin A1c (in hous e) Reviewed date:11/03/2024 11:55:47 AM Interpretation:5.8 Normal Performing Lab: Notes/Report: 5.8 Normal glycohemoglobin 5.8% 5 - 6.5 % Glucose (In-House) Reviewed date:11/03/2024 11:55:47 AM Interpretation:93 Normal Performing Lab: Notes/Report: 93 Normal blood glucose 93 74 - 106 mg/dL Reason For Referral [...] W/U Status Risk Notes Problem Essential hypertension (40379456) Essential hypertension (I10) Active confirmed Problem Morbid obesity (714396824) Morbid obesity (E66.01) Active confirmed Problem Impaired fasting glycaemia (862330961) IFG (impaired fasting glucose) (R73.01) Active confirmed Problem Pure hypercholesterolemia (560147889) Pure hypercholesterolemia (E78.00) Active confirmed Vital Signs Heart Rate 96 /min 10/28/2024 Blood pressure diastolic 82 mm Hg 10/28/2024 Height 67 in 10/28/2024 Blood pressure systolic 120 mm Hg 10/28/2024 Weight 244.8 lbs 10/28/2024 BMI 38.34 kg/m2 10/28/2024 Encounters Encounter Location Date Provider Diagnosis [place] [address] [place], [place] [phone] 05/01/2024 Jamie Ellenton Essential hypertensi on I10 ; Pure hypercholesterolemia E78.00 ; IFG (impaired fasting glucose) R73.01 ; Depressive disorder F32.A ; Morbid obesity E66.01 ; Left wrist pain M25.532 ; Breast cancer screening by mammogram Z12.31 ; Osteoporosis screening Z13.820 and Encounter for immunization Z23 [facility] [address] [place], [place] [phone] 10/28/2024 Jamie Ellenton Pure hypercholestero lemia E78.00 ; Essential hypertension I10 ; IFG (impaired fasting glucose) R73.01 ; Depressive disorder F32.A and Morbid obesity E66.01 [facility] [address] [place], [place] [id number] 11/09/2024 [facility] [address] [facility] [address] [place], [place] [phone] 05/03/2024 Jamie Ellenton Assessments Encounter Date Diagnosis (ICD Code) Assessment [...] Treatment Pending Test Test Name Order Date Mammogram 05/01/2024 Insurance Providers Payer Name Payer Address Payer Phone Subscriber Number Group Number Insured Name Patient Relationship to Insured Coverage Start Date Coverage End Date MEDICARE PART B [address] [address] [place] [id number] Karmen Blakely Self - patient is the insured Medical (General) History Medical History History ICD Code Hypertension Hyperlipidemia Allergic Rhinitis Depression Impaired fasting glucose Cologuard - Negative Surgical History Surgery Date(Month/Year) 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
== END 2024-11-12 23:59 | disposition home or self-care (01) ==
LOC: RAD 09:49
PROVIDERS: PCP Family Medicine; Visit Provider Family Medicine
DX: Z12.31 Encounter for screening mammogram for malignant neoplasm of breast (principal); R92.323 Mammographic fibroglandular density, bilateral breasts
CPT/HCPCS: 77063; 77067